=== PATIENT | male | born 1950 | race Caucasian/White ===

== ENCOUNTER → 2017-02-02 | Outpatient (CLI) | payer OTHER ==
[2017-02-02 09:07] LABS: HEMOGLOBIN 13.1 gm/dL (14.0-18.0); MCH 31.8 pg (26.0-34.0); MCHC 35.5 g/dL (28.0-37.0); MCV 89.5 fL (80.0-100.0); RBC 4.13 mil/uL (4.50-6.00)
[2017-02-02 09:16] LABS: CALCIUM 8.7 mg/dL (8.5-10.1); CREATININE 1.1 mg/dL (0.7-1.3); POTASSIUM 4.1 mmol/L (3.5-5.1)
[2017-02-02 09:21] LABS: ALBUMIN 3.7 g/dL (3.4-5.0); TOTAL BILIRUBIN 0.6 mg/dL (<0.1-1.0); TOTAL PROTEIN 7.1 g/dL (6.4-8.2)
== END ==
LOC: CAT 08:38
PROVIDERS: Internal Medicine Cardiovascular Disease
DX: I48.91 Unspecified atrial fibrillation (principal); R59.0 Localized enlarged lymph nodes; R91.1 Solitary pulmonary nodule

== ENCOUNTER 2017-02-11 06:31 | Observation (INO) | payer OTHER ==
[~2017-02-11] VITALS: Ht 182.9 cm; Wt 89.8 kg
--- NOTE | ~2017-02-11 | P ---
[facility] [place] [address] PROCEDURE REPORT Name: JOY TOLBERT [id number] Admission: 02/11/17 Attend Phys: Edison Barrientos MD Discharge: Date of : 48 Report #: [id number] THIS REPORT FOR: //name// CC: Edison Caban DATE OF SERVICE: 02/11/2017 PREOPERATIVE DIAGNOSIS: Paroxysmal atrial fibrillation. POSTOPERATIVE DIAGNOSIS: Paroxysmal atrial fibrillation. HISTORY: The patient is a 67-year-old with history of paroxysmal atrial fibrillation who has failed antiarrhythmic drugs and is here for an ablation. ANESTHESIA: The patient underwent general anesthesia with no anesthesia related complications. DESCRIPTION OF PROCEDURE: The patient underwent informed consent. We discussed the details of the procedure including the risks, which include but not limited to bleeding, infection, vascular damage, cardiac perforation. He understood these risks and was willing to proceed. As such, he was brought to the EP laboratory in a fasting and sedated state and placed under general anesthesia. Next, I injected 10 mL of lidocaine at the right groin and obtained access to the right femoral vein x 3 placing an 8-Spanish, 9-Spanish and a 7-Spanish locking sheath using the modified Seldinger technique. Next, I then placed a decapolar catheter easily in the coronary sinus and an ice catheter into the right atrium. Of note, entering the heart from the inferior vena cava was somewhat challenging, but eventually things entered the right atrium. Using intracardiac ultrasound, I visualized the interatrial septum. He had 2 left pulmonary veins and 2 right pulmonary veins. Next, the patient was systemically heparinized and then, I exchanged my 8-Spanish short sheath for an SL1 sheath and a [place] needle and a transseptal was performed easily in a nice anterior and inferior location. I then exchanged the SL1 sheath for the cryosheath and placed the cryoballoon into the left atrium. At baseline, the patient was in sinus rhythm with sinus cycle length of 725 milliseconds, HI interval 165 milliseconds, QRS duration 95 milliseconds, QT interval 400 milliseconds. Next, I performed 2 freezes in the left superior pulmonary vein. I was not able to visualize isolation during the 2 freezes; therefore, I performed two 4-minute freezes in the left superior pulmonary vein. I then verified that there was isolation after completion of the freezes. Next, I turned my attention to the left inferior pulmonary vein. The left inferior pulmonary vein isolated after 60 seconds during the first freeze with a maximum minus temperature of 46 degrees. I performed a second 4-minute freeze with a maximum temperature of -46 degrees. The right superior pulmonary vein was then isolated with two 4-minute freezes. Again this vein, I could not visualize isolation; therefore, I performed two 4-minute freezes. [address] [address] PROCEDURE REPORT Name: JOY TOLBERT Room #: 208-P [facility] Aishwarya OlsenRUrsula#: [id number] Admission: 02/11/17 Attend Phys: Edison Barrientos MD Discharge: Date of : 48 Report #: [id number] Maximal minus temperatures on these freezes were -40s. Next, I re-interrogated the left superior and left inferior pulmonary veins and these remained isolated and then, I isolated the right inferior pulmonary vein. This vein isolated within 38 seconds of the first freeze and I performed two 4-minute freezes in this vein. The maximal temperatures in this vein were -39 degrees. During isolation of the right-sided pulmonary veins, I did perform phrenic nerve pacing. Maintenance of the phrenic nerve remained strong throughout the ablation. Of note, finding the phrenic nerve was somewhat challenging in this patient due to his distorted anatomy. As such, all veins were isolated. I pulled the cryoballoon and sheath to the right atrium. Using intracardiac ultrasound, I verified that the patient did not have a pericardial effusion. Post-ablation, he was in sinus rhythm with a sinus cycle length of 705 milliseconds, HI interval 160 milliseconds, QRS duration 95 milliseconds, QT interval 405 milliseconds. Next, the patient received systemic protamine and once ACT was in acceptable range, all catheters and sheaths were pulled. Hemostasis was obtained and the patient awoke neurologically and hemodynamically intact with no complications and no significant bleeding. CONCLUSIONS: Successful AFib ablation with isolation of the pulmonary vein. By: [id number] Edison Barrientos MD /nt
--- NOTE | ~2017-02-11 | EKG ---
[address] [address] ELECTROCARDIOGRAM REPORT Name: JOY TOLBERT Room #: 208-[facility]#: [id number] Admission: 02/11/17 Attend Phys: Edison Barrientos MD Discharge: 02/12/17 Date of : 48 Report #: [id number] THIS REPORT FOR: //name// [facility] Test Date: 2017-02-12 Test Time: 07:02:08 Pat Name: JOY TOLBERT Department: Room: 208 Gender: M Front Office Attendant: DEVON HANNAB: 1950 Requested By: Edison Barrientos Order Number: [id number] MD: Edison Barrientos Measurements Intervals [place] Rate: 118 P: [place]: QRS: -33 QRSD: 105 T: 44 QT: 344 QTc: 483 Interpretive Statements Atrial fibrillation Left axis deviation RSR' in V1 or V2, probably normal variant Borderline ST depression, anterolateral leads Borderline prolonged QT interval No previous ECG available for comparison Electronically Signed On 02-13-2017 22:17:39 CDT by Edison Barrientos [email or web address] <ELECTRONICALLY SIGNED> By: Edison Barrientos MD 02/13/17 2217 1 1 Edison Barrientos MD /EPI
--- NOTE | ~2017-02-11 | D ---
[facility] [place] [address] DISCHARGE SUMMARY Name: JOY TOLBERT Room #: 208-P [facility] M..#: [id number] Admission: 02/11/17 Attend Phys: Edison Barrientos MD Discharge: Date of : 48 Report #: [id number] THIS REPORT FOR: //name// CC: Edison Barrientos [facility] DISCHARGE DIAGNOSIS: Atrial fibrillation. PROCEDURES PERFORMED: AFib ablation. HISTORY: The patient is a 67-year-old with a history of recurrent paroxysmal atrial fibrillation despite antiarrhythmic drugs. He was here for AFib ablation. The patient underwent successful ablation with isolation of the 4 pulmonary veins. There were no intra-procedure complications. HOSPITAL COURSE: The patient was monitored overnight and he did well, but did have an episode of atrial fibrillation at around 6 this morning. This lasted for about an hour and resolved after he received an additional dose of flecainide. He converted back to sinus rhythm and was feeling okay. The patient reports that he was doing well, without any fevers or chills. He had some mild inspiratory chest pain, which is typical of undergoing this procedure. He denied any shortness of breath and had no groin pain. PHYSICAL EXAMINATION: HEART: Regular rate and rhythm, with no murmurs, rubs or gallops. LUNGS: Clear bilaterally. GENITOURINARY: Right groin showed no hematoma or bruising. As such, he was deemed stable for discharge home. We discussed the findings of his cardiac CT scan, which did show some enlarged lymph nodes. The radiologist recommended further evaluation including potential repeat CT scan in the future. As such, I discussed these findings with the patient and his and I instructed them to follow up with their PCP for further evaluation. They both understood. They both voiced understanding of these recommendations. DISCHARGE MEDICATIONS: As such, the patient was discharged home on his standard cardiac medications including flecainide 100 b.i.d., Pradaxa 150 b.i.d. as well as the metoprolol. He will follow up with me in 3 months and discharge instructions were reviewed. By: [id number] Edison Barrientos MD /nt
[2017-02-11] MEDS ORDERED: FLOMAX0.4 MG PO (06:47)
[2017-02-11] MEDS ORDERED: OMEPRAZOLE20 M2 PO (06:47)
[2017-02-11] MEDS ORDERED: LOPRESSOR50 PO (06:48)
[2017-02-11] MEDS ORDERED: FLECAINIDE ACET50 M1 PO (06:48)
[2017-02-11] MEDS ORDERED: ASPIRIN325 PO (06:49)
[2017-02-11] MEDS ORDERED: NIACIN500 MG PO (06:49)
[2017-02-11] MEDS ORDERED: GABAPENTIN 100100 MG PO (06:49)
[2017-02-11] MEDS ORDERED: CALCIUM 600 +1 EAC1 PO (06:50)
[2017-02-11] MEDS ORDERED: FISH OIL 1,001000 M2 PO (06:50)
[2017-02-11] MEDS ORDERED: MEGA MULTI FOR1 EAC1 PO (06:50)
[2017-02-11] MEDS ORDERED: SAW PALMETTO C1 EACH PO (06:51)
[2017-02-11 07:03] VITALS: BP 120/71
[2017-02-11 07:06] LABS: BASOPHILS 0.8 % (0.0-2.0); EOSINOPHILS 9.4 % (0.0-3.0); HEMATOCRIT 37.4 % (42.0-52.0); HEMOGLOBIN 13.1 gm/dL (14.0-18.0); LYMPHOCYTES 29.9 % (24.0-44.0); MCH 31.8 pg (26.0-34.0); MCHC 35.1 g/dL (28.0-37.0); MCV 90.5 fL (80.0-100.0); MONOCYTES 7.6 % (1.0-8.0); PLATELET COUNT 136 thou/uL (150-400); POLYS 52.3 % (36.0-66.0); RBC 4.13 mil/uL (4.50-6.00); RDW 13.4 % (10.5-14.5); WBC 5.7 thou/uL (4.0-11.0)
[2017-02-11 07:08] LABS: MANUAL DIFF NO
[2017-02-11 07:15] LABS: CALCIUM 8.7 mg/dL (8.5-10.1); CREATININE 1.2 mg/dL (0.7-1.3)
[2017-02-11 07:20] LABS: ALBUMIN 3.7 g/dL (3.4-5.0); TOTAL BILIRUBIN 0.6 mg/dL (<0.1-1.0)
[2017-02-11 07:21] LABS: APTT 32.3 Seconds (24.5-32.8); INR 1.1
[2017-02-11 13:30] VITALS: BP 127/72
[2017-02-11 15:15] VITALS: BP 129/79
[2017-02-11 19:52] VITALS: BP 113/80
[2017-02-11 23:43] VITALS: BP 113/74
[2017-02-12] VITALS (7 sets, daily range): BP systolic 100–124; BP diastolic 62–85
[2017-02-12] MEDS ORDERED: PRADAXA150 MG PO (08:37)
== END 2017-02-12 10:00 | disposition home or self-care (01) ==
LOC: CATH 06:31 → PRE 11:17 → EDSTATUS 11:37 → 2N 13:57
PROVIDERS: Internal Medicine Cardiovascular Disease
DX: I48.0 Paroxysmal atrial fibrillation (principal)
CPT/HCPCS: 62110; 62900; 70005